=== PATIENT | female | born 2005 | race Caucasian/White ===

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

== ENCOUNTER → 2025-10-02 | Emergency (ER) | payer OTHER ==
[~2025-10-02] VITALS: Ht 165.1 cm; Wt 59.0 kg
[~2025-10-02] MED LIST: SYNTHROID88 MCG PO
== END | disposition left against medical advice (07) ==
LOC: ER 15:51 → EMR PED 16:26 → ER 16:26
DX: Z53.21 Procedure and treatment not carried out due to patient leaving prior to being seen by health care provider (principal)